=== PATIENT | male | born 1995 | race Caucasian/White ===

== ENCOUNTER 2020-04-01 13:09 | Emergency (ER) | payer OTHER ==
[2020-04-01] MEDS ORDERED: Dexamethasone 4 MG/ML SDV IM ONE (14:11)
--- NOTE | 2020-04-01 14:17 | EDM.PDOC ---
ED HPI GENERAL MEDICAL PROBLEM - General Chief Complaint: Back Pain or Injury Stated Complaint: BACK ISSUE Time Seen by Provider: 04/01/20 14:00 Source of Information: Reports: Patient, RN, RN Notes Reviewed History Limitations: Reports: No Limitations - History of Present Illness INITIAL COMMENTS - FREE TEXT/NARRATIVE: Patient presents to ER with complaint of left lower back pain that shoots a sharp pain up the left side of the back, states when he turns his head to the left he has a sharp pain in his neck as well. Patient states he injured himself at [facility] during PT last time he was there approximately 2 weeks ago. Patient states he was running 6 miles with a heavy backpack on. States he was seen by medic there who diagnosed him with sciatica and he was given prednisone at that time. Patient states he continues to have pain, denies any numbness or tingling down the left leg. Denies any saddle anesthesia. Patient states he has been using Tylenol and ibuprofen for pain, denies use of heat or ice. Onset: Gradual Treatments CLINICAL LAW PROFESSOR: Reports: Acetaminophen, NSAIDS, Other Medication(s) Other Treatments CLINICAL LAW PROFESSOR: prednisone x5 days Lower Back Pain Score (Numeric/FACES): 6 - Related Data Allergies Allergy/AdvReac Type Severity Reaction Status Date / Time No Known Allergies Allergy Verified 04/01/20 14:18 Home Meds: Home Meds Acetaminophen [Tylenol] 1 tab PO ASDIRECTED PRN 04/01/20 [History] Ibuprofen [Ibu-200] 1 tab PO ASDIRECTED PRN 04/01/20 [History] ED ROS GENERAL - Review of Systems Review Of Systems: Comprehensive ROS is negative, except as noted in HPI. ED EXAM,LOWER BACK PAIN/INJURY - Physical Exam Exam: See Below Exam Limited By: No Limitations General Appearance: Alert, WD/WN, No Apparent Distress Eye Exam: Bilateral Eye: EOMI, Normal Inspection Ears: Normal External Exam, Hearing Grossly Normal Nose: Normal Inspection Throat/Mouth: Normal Inspection, Normal Voice, No Airway Compromise Head: Atraumatic, Normocephalic Neck: Normal Inspection, Supple, Non-Tender, Full Range of Motion Respiratory/Chest: No Respiratory Distress, Lungs Clear, Normal Breath Sounds, No Accessory Muscle Use, Chest Non-Tender Cardiovascular: Normal Peripheral Pulses, Regular Rate, Rhythm, No Edema, No Gallop, No JVD, No Murmur, No Rub GI/Abdominal: Normal Bowel Sounds, Soft, Non-Tender, No Organomegaly, No Distention, No Abnormal Bruit, No Mass (Male) Exam: Deferred Rectal (Males) Exam: Deferred Back Exam: Normal Inspection, Decreased Range of Motion, Muscle Spasm, Paraspina l Tenderness Extremities: Normal Inspection, Normal Range of Motion, Non-Tender, No Pedal Edema, Normal Capillary Refill Neurological: Alert, Normal Mood/Affect, Normal Dorsiflexion, CN II-XII Intact, Normal Plantar Flexion, Normal Gait, Normal Reflexes, No Motor/Sensory Deficits, Oriented x 3 Psychiatric: Normal Affect, Normal Mood Skin Exam: Warm, Dry, Intact, Normal Color, No Rash Lymphatic: No Adenopathy Course - Vital Signs Last Recorded V/S: Last Vital Signs Temp 96.5 F L 04/01/20 13:40 Pulse 62 04/01/20 13:40 Resp 16 04/01/20 13:40 BP 130/72 04/01/20 13:40 Pulse Ox 99 04/01/20 13:40 - Orders/Labs/Meds Meds: Medications Discontinued Medications Generic Name Dose Route Start Last Admin Trade Name Amritq PRN Reason Stop Dose Admin Dexamethasone 8 mg 04/01/20 14:11 04/01/20 14:24 Dexamethasone IM 04/01/20 14:12 8 mg ONETIME ONE Administration Departure - Departure Time of Disposition: 14:15 Disposition: Home, Self-Care 01 Condition: Fair Clinical Impression: Muscle strain Low back pain Qualifiers: Chronicity: acute Back pain laterality: left Sciatica presence: with sciatica Sciatica laterality: sciatica of left side Qualified Code(s): M54.42 - Lumbago with sciatica, left side - Discharge Information *PRESCRIPTION DRUG MONITORING PROGRAM REVIEWED*: No *COPY OF PRESCRIPTION DRUG MONITORING REPORT IN PATIENT KATHLEEN: No Instructions: Back Injury Prevention, [id number], Muscle Strain, [id number], Back Exercises, [id number] Forms: ED Department Discharge Additional Instructions: Rx: Cyclobenzaprine, dexamethasone Continue to use Tylenol and ibuprofen Alternate heat and ice Follow-up with your primary care provider for MRI Sepsis Event Note (ED) - Evaluation Sepsis Screening Result: No Definite Risk - Focused Exam Vital Signs: Vital Signs Temp Pulse Resp BP Pulse Ox 04/01/20 13:40 96.5 F L 62 16 130/72 99
== END 2020-04-01 14:30 | disposition home or self-care (01) ==
LOC: DL.ED 13:09
DX: S39.012A Strain of muscle, fascia and tendon of lower back, initial encounter (principal); M54.42 Lumbago with sciatica, left side; X58.XXXA Exposure to other specified factors, initial encounter
CPT/HCPCS: 96372; 99283; J1100